=== PATIENT | male | born 1940 | race Caucasian/White ===

== ENCOUNTER 2019-06-18 08:06 | Day surgery (SDC) | payer OTHER, SELFPAY ==
[2019-06-17 13:34] VITALS: BMI 34.4
--- NOTE | 2019-06-18 10:12 | W.PM.OPSUD ---
Surgery/Procedure H&P Update DATE OF PROCEDURE: June 18, 2019 DATE H&P PERFORMED: 06/13/19 H&P UPDATE INFORMATION: I have reviewed H&P completed within last 30 days, I have examined patient prior to procedure and No changes to prior documentation PREOP DIAGNOSIS: Suspicious skin lesion left hand PLANNED PROCEDURE: Operation Date: 06/18/19 09:20 Proposed Procedures p EXCISION OF SKIN CANCER OF LEFT HAND 57194 (C44.90)(Left) - Danie Warren MD
[2019-06-18 10:43] VITALS: BP 135/88; PULSE 71; RESP 20; TEMP 36.1; O2SAT 98
[2019-06-18] MEDS: sodium chloride 0.9% 1,000 ML 30 ML IV (10:49)
[2019-06-18 10:52] LABS: Glucose Point of Care 134 mg/dL (70-110)
--- NOTE | 2019-06-18 11:23 | P.ANESASSM_ITS ---
Pre-Anesthetic Assessment Pre-Anesthetic Assessment: Height/Weight: Height 1.78 m Weight 108.862 kg Temp Pulse Resp BP Pulse Ox 97 F L 71 20 H 135/88 98 06/18/19 10:43 06/18/19 10:43 06/18/19 10:43 06/18/19 10:43 06/18/19 10:43 Preop Diagnosis: Suspicious skin lesion left hand Proposed Procedure: Operation Date: 06/18/19 09:20 Proposed Procedures p EXCISION OF SKIN CANCER OF LEFT HAND 70110 (C44.90)(Left) - Danie Warren MD Familial anesthetic complications: None Was Beta Keri taken within 24 hours: Yes Last intake: Intake ate a cracker at 0500 with meds Last Liquid Date 06/18/19 Last Liquid Time 05:00 Last Solid Date 06/18/19 Last Solid Time 05:00 Social: Social History: Tobacco and No alcohol Exam: Pre-Anes Outpt Exam: alert, oriented x 3, clear to auscultation bilaterally and regular rate & rhythm Additional Exam Findings (including area of procedure): raspy breath sounsd Airway: Cervical ROM: WNL MP: 4 Additional comments: Very poor dentition, multiple broken teeth Pulmonary: Pulmonary: COPD CV/HEM: CV/HEM: CAD (s/p stents), CHF (EF 40% per patient) and HTN : : None reported Hepatic: Hepatic: None reported GI: GI: None reported Metabolic: Metabolic: DM and Morbid obesity Musc/skel: Musc/skel: None reported Neuropsych: Neuropsych: None reported Anesthetic Plan: ASA status: 3 Anesthesia: MAC Risk of > 500 ml blood loss (7ml/kg in children): No Meds/Allergies Current Medications: Current Medications Generic Name Dose Route Start Last Admin Trade Name Freq PRN Reason Stop Dose Admin Sodium Chloride 1,000 mls @ 30 ml s/hr 06/18/19 08:30 06/18/19 10:49 Sodium Chloride 0.9% IV 06/19/19 08:29 30 mls/hr .Q24H KAREN Administration PFSH Anesthesia PFSH: Medical History CHF (congestive heart failure) Diabetes Hypertension Surgical History History of coronary angioplasty with insertion of stent History of laparoscopic cholecystectomy History of left knee replacement History of left shoulder replacement History of right knee joint replacement Family History Denies family history of Anesthesia complication Bleeding disorder Social History Smoking and tobacco status: current every day smoker Second hand smoke exposure: No Alcohol intake: never Adopted: No Caregiver/support person: Yes Lives independently: Yes Household members: none Housing: House Marital status: / service: No Current occupational status: retired Current occupational exposures/hazards: No Pets and animals: No History of recent travel: No Leisure activites: exercise Current gender identity: Male Data Anesthesia Other Labs: Laboratory Results - last 48 hr 06/18/19 10:46 POC Glucose 134 Cardiac Studies: No Data to Display
[2019-06-18] MEDS: lidocaine 1% INJ 20 mL SUBCUT (11:51)
[2019-06-18] MEDS: neomycin-poly-bacitracin oint 28 gm 1 APPLIC TOPICAL (12:10)
[2019-06-18 12:17] VITALS: BP 118/68; PULSE 65; RESP 18; TEMP 36.1; O2SAT 96
[2019-06-18 12:34] VITALS: BP 133/81; PULSE 65; RESP 18; O2SAT 98
--- NOTE | 2019-06-18 15:40 | PM.OP ---
Operative Report Date of procedure: June 18, 2019 Pre-op Diagnosis: Suspicious skin lesion dorsal aspect of left hand Post-op diagnosis: same Procedure Done: Excision of suspicious skin lesion left hand Specimens removed/disposition: Suspicious skin lesion dorsal aspect of left hand Surgeon: Danie Warren Anesthesia: MAC and Local Estimated blood loss (mL): 10 Condition: stable Disposition: same day Procedure: The patient was taken to the operating room and placed under MAC after IV antibiotic had been administered. 1% lidocaine with 0.5% Marcaine was infiltrated around the suspicious skin lesion on the dorsal aspect of the left hand. Using a 15 blade an elliptical longitudinal incision was made around the suspicious skin lesion after ensuring adequate margins. Using electrocautery the subcutaneous tissue was divided and the mass was dissected from the surrounding tissue as well as underlying tendons use. Medial and lateral skin flaps were raised and the subcutaneous tissue was approximated using interrupted 3-0 Vicryl suture and skin was closed using vertical mattress 3-0 Prolene suture. Antibiotic cream, Telfa and Kerlix was used to cover the incision. The patient was transferred to recovery room in stable condition.
== END 2019-06-18 12:50 | disposition home or self-care (01) ==
PROVIDERS: PCP Physician Assistant Medical; Visit Provider Surgery
PROC: (CPT 11623; principal; 2019-06-18 09:20)
DX: C44.629 Squamous cell carcinoma of skin of left upper limb, including shoulder (principal); J44.9 Chronic obstructive pulmonary disease, unspecified; I25.10 Atherosclerotic heart disease of native coronary artery without angina pectoris; Z95.5 Presence of coronary angioplasty implant and graft; E11.9 Type 2 diabetes mellitus without complications; E66.01 Morbid (severe) obesity due to excess calories; Z68.34 Body mass index [BMI] 34.0-34.9, adult; I11.0 Hypertensive heart disease with heart failure; I50.9 Heart failure, unspecified; F17.210 Nicotine dependence, cigarettes, uncomplicated
CPT/HCPCS: 11623; 12041; 12345; 36416; 82962; 88305; J0690; J2001; J2250; J2405; J2704; J2765; J3010; J3490; J7030